=== PATIENT | male | born 1975 | race Caucasian/White ===

== ENCOUNTER 2025-02-17 10:34 | Emergency (ER) | payer OTHER ==
[2025-02-17 11:02] VITALS: RESP 20; TEMP 98.2; BMI 23.1
[2025-02-17] MEDS ORDERED: ACETAMINOPHEN INJECTION 100 ML ONE (11:52)
[2025-02-17] MEDS ORDERED: FAMOTIDINE 20 MG/50 ML IVPB 20 MG/50 ML MG IVPB ONE (11:53)
[2025-02-17] MEDS ORDERED: LIDOCAINE 5% TOPICAL PATCH ONE (11:53)
[2025-02-17] MEDS: LIDOCAINE 4% PATCH TP ONE (12:24)
[2025-02-17] MEDS: ACETAMINOPHEN 1000 MG/100 ML BAG IVPB ONE (12:24)
[2025-02-17] MEDS: FAMOTIDINE 20 MG/50 ML IVPB 20 MG/50 ML MG IVPB ONE (12:24)
[2025-02-17 12:33] LABS: ABSOLUTE IMMATURE GRANULOCYTES 0.03 x10^3/uL (0.0-0.031); BASOPHILS # 0.03 x10^3/uL (0.01-0.08); EOSINOPHILS # 0.09 x10^3/uL (0.04-0.54); HEMATOCRIT 38.1 % (40.1-51.0); HEMOGLOBIN 12.2 g/dL (13.7-17.5); MEAN CELL VOLUME 91.4 fl (79.0-92.2); MEAN PLT VOLUME 11.4 fl (9.4-12.4); MONOCYTE # 0.46 x10^3/uL (0.30-0.82); MONOCYTE % 4.9 % (5.3-12.2); PLATELET COUNT 254 x10^3/uL (163-337); RDW 13.7 % (12.1-15.9)
[2025-02-17 12:41] LABS: INR 1.13 (0.83-1.09); PROTHROMBIN TIME (PATIENT) 12.3 SEC (9.7-13.0)
[2025-02-17 12:43] LABS: ACTIVATED PTT 33.4 SECONDS (25.2-36.5)
[2025-02-17 12:51] LABS: POTASSIUM 4.7 mmol/L (3.5-5.1)
[2025-02-17 12:55] LABS: BLOOD UREA NITROGEN 21.1 mg/dL (7-18); CALCIUM 9.8 mg/dL (8.5-10.1)
[2025-02-17 12:58] LABS: CREATININE 0.7 mg/dL (0.55-1.3)
[2025-02-17 12:59] LABS: BILIRUBIN,TOTAL 0.3 mg/dL (0.2-1); TOT PROT 8.4 g/dl (6.4-8.2)
[2025-02-17 13:58] LABS: PH,URINE 7.5 (5.0-8.0); URINE APPEARANCE CLEAR; URINE BILIRUBIN NEGATIVE (NEGATIVE); URINE COLOR YELLOW; URINE GLUCOSE (UA) NEGATIVE (NEGATIVE); URINE KETONE NEGATIVE (NEGATIVE); URINE LEUK ESTERASE NEGATIVE (NEGATIVE); URINE NITRITE NEGATIVE (NEGATIVE); URINE PROTEIN NEGATIVE (NEGATIVE); URINE UROBILINOGEN 0.2 mg/dL (0.2-1.0)
[2025-02-17 15:37] VITALS: BP 103/87; PULSE 74
[2025-02-17] MEDS ORDERED: LIDOCAINE PATCH REMOVAL MC ONE (22:00)
== END 2025-02-17 16:10 | disposition home or self-care (01) ==
LOC: JER 10:34
PROC: 3E033GC Introduction of Other Therapeutic Substance into Peripheral Vein, Percutaneous Approach (ICD-10-PCS; principal; 2025-02-17)
PROC: 3E033NZ Introduction of Analgesics, Hypnotics, Sedatives into Peripheral Vein, Percutaneous Approach (ICD-10-PCS; 2025-02-17)
DX: M54.50 Low back pain, unspecified (principal); M54.6 Pain in thoracic spine; G89.29 Other chronic pain; R20.2 Paresthesia of skin; R35.0 Frequency of micturition
CPT/HCPCS: 36415; 71046-TC-FY; 80053; 81003; 83605; 83690; 83735; 84484; 85025; 85610; 85730; 87086; 93005; 93010; 96365; 96375; 99285-25

== ENCOUNTER 2025-03-06 15:00 | Emergency (ER) | payer OTHER ==
[2025-03-06 15:28] VITALS: BP 138/78; PULSE 67; RESP 18; BMI 22.8
[2025-03-06] MEDS ORDERED: ACETAMINOPHEN INJECTION 100 ML ONE (16:30)
[2025-03-06] MEDS: ACETAMINOPHEN 1000 MG/100 ML BAG IVPB ONE (16:53)
[2025-03-06 17:09] LABS: ABSOLUTE IMMATURE GRANULOCYTES 0.03 x10^3/uL (0.0-0.031); BASOPHILS # 0.03 x10^3/uL (0.01-0.08); EOSINOPHIL % 1.3 % (0.8-7.0); EOSINOPHILS # 0.11 x10^3/uL (0.04-0.54); MCHC 31.4 g/dl (32.3-36.5); MEAN CELL VOLUME 91.1 fl (79.0-92.2); MEAN PLT VOLUME 11.2 fl (9.4-12.4); MONOCYTE # 0.51 x10^3/uL (0.30-0.82); MONOCYTE % 6.2 % (5.3-12.2); RDW 13.5 % (12.1-15.9)
[2025-03-06 18:11] LABS: CO2 28.0 mmol/L (21-32)
[2025-03-06 18:12] LABS: GLUCOSE,RANDOM 94.0 mg/dL (74-106)
[2025-03-06 18:15] LABS: CREATININE 0.7 mg/dL (0.55-1.3); SGOT/AST 13.0 U/L (15-37)
[2025-03-06 18:16] LABS: TOT PROT 7.8 g/dl (6.4-8.2)
[2025-03-06 18:18] LABS: ALK PHOS 97.0 U/L (45-117)
[2025-03-06 18:24] LABS: SGPT/ALT 21.0 U/L (13-61)
[2025-03-06 20:00] LABS: HIV INTERPRETATION NEGATIVE (NEGATIVE)
[2025-03-06 20:01] LABS: HCV DIAGNOSTIC IN-HOUSE W/RFLX NON-REACTIVE (NONREACTIVE)
== END 2025-03-06 20:52 | disposition home or self-care (01) ==
LOC: JER 15:00
PROC: 3E033NZ Introduction of Analgesics, Hypnotics, Sedatives into Peripheral Vein, Percutaneous Approach (ICD-10-PCS; principal; 2025-03-06)
DX: M54.50 Low back pain, unspecified (principal); M54.6 Pain in thoracic spine; G89.29 Other chronic pain; R11.0 Nausea; R07.81 Pleurodynia
CPT/HCPCS: 36415; 71045-TC-FY; 72128-TC; 72131-TC; 80053; 85025; 86803; 87389; 93005; 93010; 99285-25